=== PATIENT | male | born 1980 | race Hispanic/Latino ===

== ENCOUNTER 2017-12-04 18:31 | Emergency (ER) | payer BC ==
[~2017-12-04] VITALS: Ht 167.6 cm; Wt 68.0 kg
[2017-12-04 19:21] VITALS: BP 118/42
== END 2017-12-04 19:35 | disposition home or self-care (01) | DRG 605 ==
LOC: ED 18:31
PROC: 0HQDXZZ Repair Right Lower Arm Skin, External Approach (ICD-10-PCS; principal; 2017-12-04)
DX: S61.511A Laceration without foreign body of right wrist, initial encounter (principal); W27.8XXA Contact with other nonpowered hand tool, initial encounter; Y93.89 Activity, other specified; Y92.89 Other specified places as the place of occurrence of the external cause; Y99.0 Civilian activity done for income or pay

== ENCOUNTER 2021-05-24 08:59 | Emergency (ER) | payer BC ==
[~2021-05-24] VITALS: Ht 167.6 cm; Wt 77.0 kg
[2021-05-24 09:37] VITALS: BP 133/90
[2021-05-24 10:08] LABS: HEMATOCRIT 47.7 % (39.0-50.0); IMMATURE GRANULOCYTES 0.3 % (0.0-5.0); MEAN CELL VOLUME 87.8 fL CALC (80.0-100.0); MEAN CORPUSCULAR HGB 29.5 pG CALC (26.0-32.0); MEAN CORPUSCULAR HGB CONC 33.5 g/dL CAL (32.0-36.0); NEUT# 5.59 thou/uL (1.82-7.42); RED BLOOD COUNT 5.43 mill/uL (4.70-6.10); RED CELL DISTRI WIDTH 11.9 % (11.5-15.5)
[2021-05-24 10:12] LABS: URINE BILIRUBIN - DIPSTICK NEGATIVE (NEGATIVE); URINE BLOOD DIPSTICK NEGATIVE (NEGATIVE); URINE COLOR YELLOW; URINE GLUCOSE - DIPSTICK NEGATIVE (NEGATIVE); URINE KETONE NEGATIVE (NEGATIVE); URINE LEUK ESTERASE NEGATIVE (NEGATIVE); URINE PROTEIN - DIPSTICK NEGATIVE (NEG-TRACE); URINE UROBILINOGEN - DIPSTICK 0.2 E.U./dL (0.2)
[2021-05-24 10:16] LABS: URINE NITRITE - DIPSTICK NEGATIVE (Negative)
[2021-05-24 10:23] LABS: ALBUMIN 4.5 g/dL (3.2-5.0); ALKALINE PHOSPHATASE 106 u/l (38-126); ANION GAP 11 (6-22 (CALC)); BILIRUBIN, TOTAL 0.6 mg/dL (0.0-1.4); BUN 13 mg/dL (9-20); BUN/CREATININE RATIO 19 (12-20 (CALC)); CARBON DIOXIDE 32 mmol/l (22-30); CHLORIDE 103 mmol/l (95-108); CREATININE 0.7 mg/dL (0.7-1.3); GFR > 60 ML/MIN (>=60 (CALC)); GFR FOR AFR.AMER. > 60 ML/MIN (>=60 (CALC)); LIPASE 56 u/l (23-300); POTASSIUM 4.1 mmol/l (3.5-5.1); SGOT/AST 29 u/l (17-59); SODIUM 141 mmol/l (137-146); TOTAL PROTEIN 7.7 g/dL (6.3-8.2)
[2021-05-24] MEDS ORDERED: IBUPROFEN600 MG PO (11:14)
[2021-05-24] MEDS ORDERED: FLEXERIL5 M1 PO (11:14)
[2021-05-24 12:36] VITALS: BP 128/79
[2021-05-24 15:45] VITALS: BP 140/70
[2021-05-24 16:01] VITALS: BP 146/56
[2021-05-24 16:31] VITALS: BP 145/71
== END 2021-05-24 11:53 | disposition home or self-care (01) | DRG 563 ==
LOC: ED 08:59
DX: S39.012A Strain of muscle, fascia and tendon of lower back, initial encounter (principal); X50.0XXA Overexertion from strenuous movement or load, initial encounter